=== PATIENT | male | born 1980 | race Caucasian/White ===

== ENCOUNTER 2023-10-17 20:37 | Emergency (ER) | payer OTHER, SELFPAY ==
[2023-10-17 20:43] VITALS: BP 160/90; PULSE 86; RESP 16; TEMP 37; O2SAT 98; BMI 27.6
--- NOTE | 2023-10-17 21:16 | CT_ITS ---
[address] [address] Patient Name: DANIELA MARTINEZ MRN: [id number] date: 1980 Sex: M Assigned Patient Location: ER Current Patient Location: Accession/Order Number: [id number] Exam Date: 10/17/2023 21:35 Report Date: 10/17/2023 22:17 At the request of: RYANN ROA Procedure: CT lumbar spine wo con EXAM: CT chest w con, CT abdomen pelvis w con, CT lumbar spine wo con TECHNIQUE: Axial CT images were obtained of the chest, abdomen and pelvis following intravenous contrast administration. Sagittal and coronal reformatted images were also obtained. Axial CT images were obtained through the lumbar spinal sagittal and coronal reformatted images. Dose reduction techniques were achieved by using automated exposure control and/or adjustment of mA and/or kV according to patient size and/or use of iterative reconstruction technique. HISTORY: trauma COMPARISON: None. FINDINGS: Neck and Axilla: No lower neck or axillary lymphadenopathy. Mediastinum and Stephania: No hilar or mediastinal lymphadenopathy. Heart and Major Vessels: The heart appears unremarkable for size without pericardial effusion. The aorta and central pulmonary arteries are unremarkable for size. Lung Ayoub: The lungs are clear of acute infiltrate or mass. Pleural Cavities: No significant pleural effusion. No pneumothorax. Chest Wall: No acute abnormality. Liver: Diffuse decreased attenuation of liver suggesting steatosis. Gallbladder: The gallbladder is unremarkable. There is no intra or extrahepatic biliary dilatation. Pancreas: The pancreas is homogeneous without evidence for mass lesion or inflammation. Spleen: The spleen is unremarkable without evidence for mass lesion. Adrenal glands: The adrenal glands are unremarkable Kidneys and bladder: The kidneys are unremarkable with no evidence for mass lesion, hydronephrosis or inflammation. The ureters demonstrate normal caliber. The urinary bladder is unremarkable. GI Tract: Stomach is unremarkable. Visualized small bowel is unremarkable without evidence for obstruction or active inflammation. The appendix is unremarkable.Diverticula are seen of the colon, more significant involving the distal colon. The visualized large bowel is otherwise unremarkable. Reproductive: Unremarkable Lymph nodes: No retroperitoneal or abdominal lymphadenopathy. Vascular: The aorta is not dilated. Peritoneum: No free intraperitoneal air or fluid. No acute inflammation. Abdominal wall: Unremarkable without acute abnormality. Lumbosacral spine: No acute fracture or subluxation. No significant arthritic changes. No acute disc herniation. CT/CT lumbar spine wo con IMPRESSION: No acute traumatic injury of the chest, abdomen or pelvis. No acute fracture or subluxation of the lumbar spine. Electronically authenticated by: RACHEL VIEIRA Date: 10/17/2023 22:17
--- NOTE | 2023-10-17 21:16 | CT_ITS ---
[address] [address] Patient Name: DANIELA MARTINEZ MRN: [id number] date: 1980 Sex: M Assigned Patient Location: ER Current Patient Location: Accession/Order Number: [id number] Exam Date: 10/17/2023 21:35 Report Date: 10/17/2023 22:22 At the request of: RYANN ROA Procedure: CT head/brain wo con EXAMINATION: CT head/brain wo con, CT cervical spine wo con TECHNIQUE: Axial CT images were obtained through the brain. Sagittal and coronal reformatted images were also obtained. Axial CT images were obtained through the cervical spine. Sagittal and coronal reformatted images were also obtained. Dose reduction techniques were achieved by using automated exposure control and/or adjustment of mA and/or kV according to patient size and/or use of iterative reconstruction technique. HISTORY: trauma COMPARISON: None. FINDINGS: BRAIN: Intracranial Bleed: No evidence for acute intracranial bleed. Intracranial Mass: No evidence for mass lesion. No mass effect or midline shift. Extra-axial spaces: The ventricular system is normal caliber. White/Martinez Matter: No acute cortical infarct. No significant white matter abnormality. Skull/Scalp: No evidence for skull fracture or lesion. Orbits and sinuses: The orbits appear unremarkable. Opacification of left frontal sinus. CERVICAL SPINE: Vertebrae: No fracture Alignment: The alignment is anatomic. No acute subluxation. Arthritic changes: Mild spondylosis at C5-C6. Disc spaces: No gross disc herniation given limitation of CT scan. Soft tissues: No soft tissue mass or large hematoma. CT/CT head/brain wo con IMPRESSION: No acute intracranial pathology. No acute fracture or subluxation of the cervical spine. Electronically authenticated by: RACHEL VIEIRA Date: 10/17/2023 22:22
--- NOTE | 2023-10-17 21:16 | CT_ITS ---
[address] [address] Patient Name: DANIELA MARTINEZ MRN: [id number] date: 1980 Sex: M Assigned Patient Location: ER Current Patient Location: Accession/Order Number: [id number] Exam Date: 10/17/2023 21:35 Report Date: 10/17/2023 22:17 At the request of: RYANN ROA Procedure: CT chest w con EXAM: CT chest w con, CT abdomen pelvis w con, CT lumbar spine wo con TECHNIQUE: Axial CT images were obtained of the chest, abdomen and pelvis following intravenous contrast administration. Sagittal and coronal reformatted images were also obtained. Axial CT images were obtained through the lumbar spinal sagittal and coronal reformatted images. Dose reduction techniques were achieved by using automated exposure control and/or adjustment of mA and/or kV according to patient size and/or use of iterative reconstruction technique. HISTORY: trauma COMPARISON: None. FINDINGS: Neck and Axilla: No lower neck or axillary lymphadenopathy. Mediastinum and Stephania: No hilar or mediastinal lymphadenopathy. Heart and Major Vessels: The heart appears unremarkable for size without pericardial effusion. The aorta and central pulmonary arteries are unremarkable for size. Lung Ayoub: The lungs are clear of acute infiltrate or mass. Pleural Cavities: No significant pleural effusion. No pneumothorax. Chest Wall: No acute abnormality. Liver: Diffuse decreased attenuation of liver suggesting steatosis. Gallbladder: The gallbladder is unremarkable. There is no intra or extrahepatic biliary dilatation. Pancreas: The pancreas is homogeneous without evidence for mass lesion or inflammation. Spleen: The spleen is unremarkable without evidence for mass lesion. Adrenal glands: The adrenal glands are unremarkable Kidneys and bladder: The kidneys are unremarkable with no evidence for mass lesion, hydronephrosis or inflammation. The ureters demonstrate normal caliber. The urinary bladder is unremarkable. GI Tract: Stomach is unremarkable. Visualized small bowel is unremarkable without evidence for obstruction or active inflammation. The appendix is unremarkable.Diverticula are seen of the colon, more significant involving the distal colon. The visualized large bowel is otherwise unremarkable. Reproductive: Unremarkable Lymph nodes: No retroperitoneal or abdominal lymphadenopathy. Vascular: The aorta is not dilated. Peritoneum: No free intraperitoneal air or fluid. No acute inflammation. Abdominal wall: Unremarkable without acute abnormality. Lumbosacral spine: No acute fracture or subluxation. No significant arthritic changes. No acute disc herniation. CT/CT chest w con IMPRESSION: No acute traumatic injury of the chest, abdomen or pelvis. No acute fracture or subluxation of the lumbar spine. Electronically authenticated by: RACHEL VIEIRA Date: 10/17/2023 22:17
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
--- NOTE | 2023-10-17 21:17 | CT_ITS ---
[address] [address] Patient Name: DANIELA MARTINEZ MRN: [id number] date: 1980 Sex: M Assigned Patient Location: ER Current Patient Location: Accession/Order Number: [id number] Exam Date: 10/17/2023 21:35 Report Date: 10/17/2023 22:17 At the request of: RYANN ROA Procedure: CT abdomen pelvis w con EXAM: CT chest w con, CT abdomen pelvis w con, CT lumbar spine wo con TECHNIQUE: Axial CT images were obtained of the chest, abdomen and pelvis following intravenous contrast administration. Sagittal and coronal reformatted images were also obtained. Axial CT images were obtained through the lumbar spinal sagittal and coronal reformatted images. Dose reduction techniques were achieved by using automated exposure control and/or adjustment of mA and/or kV according to patient size and/or use of iterative reconstruction technique. HISTORY: trauma COMPARISON: None. FINDINGS: Neck and Axilla: No lower neck or axillary lymphadenopathy. Mediastinum and Stephania: No hilar or mediastinal lymphadenopathy. Heart and Major Vessels: The heart appears unremarkable for size without pericardial effusion. The aorta and central pulmonary arteries are unremarkable for size. Lung Ayoub: The lungs are clear of acute infiltrate or mass. Pleural Cavities: No significant pleural effusion. No pneumothorax. Chest Wall: No acute abnormality. Liver: Diffuse decreased attenuation of liver suggesting steatosis. Gallbladder: The gallbladder is unremarkable. There is no intra or extrahepatic biliary dilatation. Pancreas: The pancreas is homogeneous without evidence for mass lesion or inflammation. Spleen: The spleen is unremarkable without evidence for mass lesion. Adrenal glands: The adrenal glands are unremarkable Kidneys and bladder: The kidneys are unremarkable with no evidence for mass lesion, hydronephrosis or inflammation. The ureters demonstrate normal caliber. The urinary bladder is unremarkable. GI Tract: Stomach is unremarkable. Visualized small bowel is unremarkable without evidence for obstruction or active inflammation. The appendix is unremarkable.Diverticula are seen of the colon, more significant involving the distal colon. The visualized large bowel is otherwise unremarkable. Reproductive: Unremarkable Lymph nodes: No retroperitoneal or abdominal lymphadenopathy. Vascular: The aorta is not dilated. Peritoneum: No free intraperitoneal air or fluid. No acute inflammation. Abdominal wall: Unremarkable without acute abnormality. Lumbosacral spine: No acute fracture or subluxation. No significant arthritic changes. No acute disc herniation. CT/CT abdomen pelvis w con IMPRESSION: No acute traumatic injury of the chest, abdomen or pelvis. No acute fracture or subluxation of the lumbar spine. Electronically authenticated by: RACHEL VIEIRA Date: 10/17/2023 22:17
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
[2023-10-17 21:41] LABS: Basophils Absolute Auto 0.1 10^3/uL (0.0-0.1); Basophils Percent Auto 0.6 % (0.2-2.0); Eosinophils Absolute Auto 0.2 10^3/uL (0.0-0.7); Eosinophils Percent Auto 2.4 % (0.9-7.0); Hemoglobin 11.7 g/dL (14.0-18.0); Immature Granulocytes Abs Auto 0.01 10^3/uL (0.00-0.03); Immature Granulocytes Pct Auto 0.1 % (0.0-0.5); Lymphocytes Absolute Auto 2.5 10^3/uL (1.2-3.8); Lymphocytes Percent Auto 28.6 % (20.5-60.0); Mean Corpuscular HGB Conc 30.8 g/dL (29.9-35.2); Mean Corpuscular Hemoglobin 20.7 pg (25.9-34.0); Mean Corpuscular Volume 67.3 fL (80.0-94.0); Mean Platelet Volume 10.2 fL (9.5-13.5); Monocytes Percent Auto 12.1 % (1.7-12.0); Neutrophils Absolute Auto 4.8 10^3/uL (1.4-6.5); Neutrophils Percent Auto 56.2 % (43.0-75.0); Platelet Count 334 10^3/uL (150-450); Red Blood Count 5.65 10^6/uL (4.70-6.10); Red Cell Distribution Width 15.9 % (11.0-15.0); White Blood Count 8.6 10^3/uL (4.0-11.0)
[2023-10-17 21:44] LABS: Bilirubin Urine NEGATIVE (NEGATIVE); Blood Urine NEGATIVE (NEGATIVE); Clarity Urine CLEAR (CLEAR); Color Urine YELLOW (YELLOW); Glucose Urine UA NEGATIVE (NEGATIVE); Ketones Urine NEGATIVE (NEGATIVE); Leukocyte Esterase Urine NEGATIVE (NEGATIVE); Nitrite Urine NEGATIVE (NEGATIVE); Protein Urine NEGATIVE (NEG/TRACE); Specific Gravity Urine >=1.030 (1.005-1.025); Urine Microscopic Indicated NO; Urobilinogen Urine 0.2 EU/dL (0.2-1.0); pH Urine 5.5 (5.0-9.0)
[2023-10-17 21:53] LABS: Alanine Aminotransferase 48 U/L (16-63); Albumin Globulin Ratio 1.2; Albumin Level 4.4 g/dL (3.4-5.0); Alkaline Phosphatase 76 U/L (46-116); Aspartate Amino Transferase 18 U/L (15-37); BUN Creatinine Ratio 23.5; Bilirubin Total 0.8 mg/dL (0.2-1.0); Calcium 9.2 mg/dL (8.5-10.1); Chloride 103 mmol/L (98-107); Estimated GFR (African America >60 (>=60); Estimated GFR (Non-African Ame >60 (>=60); Globulin 3.7 g/dL; Glucose 97 mg/dL (74-106); Sodium 141 mmol/L (136-145); Total Protein 8.1 g/dL (6.4-8.2)
[2023-10-17 21:55] LABS: Troponin I High Sensitivity 4.8 pg/mL (4.0-76.1)
== END 2023-10-17 22:39 | disposition home or self-care (01) ==
PROVIDERS: Emergency Provider Internal Medicine; Family Provider Family Medicine
DX: S39.012A Strain of muscle, fascia and tendon of lower back, initial encounter (principal); S20.212A Contusion of left front wall of thorax, initial encounter; S06.0X0A Concussion without loss of consciousness, initial encounter; V43.52XA Car driver injured in collision with other type car in traffic accident, initial encounter
CPT/HCPCS: 36415; 70450; 71260; 72125; 72131; 74177; 80053; 81003; 84484; 85025; 99285; Q9967

== ENCOUNTER 2024-03-14 07:36 | Outpatient (OUT) | payer OTHER, SELFPAY ==
--- OUTSIDE RECORDS SUMMARY | 2024-03-14 07:40 | XMS_ITS | CCD ---
Author Organization [facility] Care Team Providers Care [employer] Technician Name Role Phone SHAIKH LOYA Attending Unavailable Encounters Encounter Date Encounter Type Care Provider Facility Start: 03-09-2024 End: 03-09-2024 ambulatory SHAIKH VINCENZO Not Available Payers Date Payer Category Payer Unknown [id number] 1980 Unknown [id number] Summary Purpose Family History No Family History Records Found Advance Directives No Advanced Directives Records Found Additional Source Comments (unrecognized sect ion and content) No Status Records Found INFORMATION SOURCE (unrecogn ized section and content) DATE CREATED AUTHOR 03/11/2024 [facility] EPIC FOR RECORDS PERTAINING TO PATIENTS WHO ARE OR HAVE BEEN ENROLLED IN A CHEMICAL DEPENDENCY/SUBSTANCEABUSE PROGRAM, SOME INFORMATION MAY BE OMITTED. This clinical summary was aggregated from multiple sources. Caution should be exercised in using it in the provision of clinical care. This summary normalizes information from multiple sources, and as a consequence, information in this document may materially change the coding, format and clinical context of patient data. In addition, data may be omitted in some cases. CLINICAL DECISIONS SHOULD BE BASED ON THE PRIMARY CLINICAL RECORDS. [employer] provides no warranty or guarantee of the accuracy or completeness of information in this document.
[2024-03-14 08:00] LABS: Basophils Percent Auto 0.4 % (0.2-2.0); Eosinophils Absolute Auto 0.2 10^3/uL (0.0-0.7); Eosinophils Percent Auto 2.8 % (0.9-7.0); Hematocrit 36.2 % (42.0-54.0); Hemoglobin 11.2 g/dL (14.0-18.0); Immature Granulocytes Abs Auto 0.01 10^3/uL (0.00-0.03); Immature Granulocytes Pct Auto 0.1 % (0.0-0.5); Lymphocytes Absolute Auto 1.5 10^3/uL (1.2-3.8); Lymphocytes Percent Auto 22.1 % (20.5-60.0); Mean Corpuscular HGB Conc 30.9 g/dL (29.9-35.2); Mean Corpuscular Hemoglobin 20.6 pg (25.9-34.0); Mean Corpuscular Volume 66.5 fL (80.0-94.0); Mean Platelet Volume 10.2 fL (9.5-13.5); Monocytes Absolute Auto 0.8 10^3/uL (0.3-0.8); Monocytes Percent Auto 11.5 % (1.7-12.0); Neutrophils Absolute Auto 4.2 10^3/uL (1.4-6.5); Neutrophils Percent Auto 63.1 % (43.0-75.0); Platelet Count 328 10^3/uL (150-450); Red Blood Count 5.44 10^6/uL (4.70-6.10); Red Cell Distribution Width 15.9 % (11.0-15.0); White Blood Count 6.7 10^3/uL (4.0-11.0)
[2024-03-14 09:43] LABS: Alanine Aminotransferase 28 U/L (16-63); Albumin Globulin Ratio 1.2; Alkaline Phosphatase 82 U/L (46-116); Anion Gap 12.4; Aspartate Amino Transferase <5 U/L (15-37); BUN Creatinine Ratio 20.5; Bilirubin Total 0.6 mg/dL (0.2-1.0); Calcium 8.9 mg/dL (8.5-10.1); Carbon Dioxide 28.6 mmol/L (21.0-32.0); Chloride 103 mmol/L (98-107); Estimated GFR (African America >60 (>=60); Estimated GFR (Non-African Ame >60 (>=60); Globulin 3.3 g/dL; Glucose 94 mg/dL (74-106); Sodium 140 mmol/L (136-145); TSH W/ REFLEX FT4 1.745 uIU/mL (0.358-3.740); Total Protein 7.3 g/dL (6.4-8.2)
== END 2024-03-14 07:37 | disposition home or self-care (01) ==
LOC: LAB 07:38
PROVIDERS: Family Provider Family Medicine; PCP Internal Medicine; Visit Provider Internal Medicine
DX: F41.1 Generalized anxiety disorder (principal); I10 Essential (primary) hypertension; F41.0 Panic disorder [episodic paroxysmal anxiety]
CPT/HCPCS: 36415; 80053; 84443; 85025

== ENCOUNTER 2025-01-11 09:01 | Outpatient (OUT) | payer OTHER, SELFPAY ==
--- OUTSIDE RECORDS SUMMARY | 2025-01-11 09:20 | XMS_ITS | CCD ---
Author Organization [facility] Care Team Providers Care New Vehicle Sales Consultant Name Role Phone Darius Blue MD Primary Care Provider Rl SUBWAY CONDUCTOR, Marian Unavailable Shaikh Loya MD Unavailable SHAIKH LOYA Attending Unavailable SHAIKH LOYA Attending Unavailable SHAIKH LOYA Attending Unavailable MARIAN CARDOSO Attending MARIAN Vargas Attending Mely Cardoso SUBWAY CONDUCTOR, Marian Unavailable Medications Current Medications Medication Drug Class(es) Dates Sig (Normalized) Sig (Original) atenolol 50 mg oral tablet (6 sources) beta-Adrenergic Jai Start: 05-11-2024 End: 11-30-2024 take 1 tablet by mouth once daily atenolol (Tenormin) 50 MG tablet Indications: Primary hypertension (CMS/HCC) , Generalized anxiety disorder with panic attacks (CMS/HCC) Take 1 tablet (50 mg) by mouth Daily 90 tablet 05/11/2024 11/30/2024 Discontinued (Side effects) 24 hr buPROPion hydrochloride 150 mg extended release oral tablet (4 sources) Aminoketone Start: 11-30-2024 End: 05-29-2025 take 1 tablet by mouth every twenty-four hours in the morning buPROPion XL (Wellbutrin XL) 150 MG 24 hr tablet Indications: Generalized anxiety disorder with panic attacks (CMS/HCC) Take 1 tablet (150 mg) by mouth in the morning. Do not crush, chew, or split.. 30 tablet 5 11/30/2024 01/11/2025 Discontinued hydrOXYzine hydrochloride 25 mg oral tablet (3 sources) Antihistamine Start: 03-09-2024 End: 07-13-2024 take 1 tablet by mouth three times daily as needed hydrOXYzine HCl (Atarax) 25 MG tablet Indications: Generalized anxiety disorder with panic attacks (CMS/HCC) Take 1 tablet (25 mg) by mouth 3 (three) times a day as needed for itching 90 tablet 1 03/09/2024 07/13/2024 Discontinued (Therapy completed) LORazepam 0.5 mg oral tablet (5 sources) Benzodiazepine Start: 07-13-2024 End: 11-30-2024 take 0.5-1 tablets by mouth every twelve hours as needed for anxiety LORazepam (Ativan) 0.5 MG tablet Indications: Generalized anxiety disorder with panic attacks (CMS/HCC) Take 1/2 to 1 tablet by mouth every 12 hours as needed for anxiety. 20 tablet 07/13/2024 11/30/2024 Discontinued (Therapy completed) sertraline 50 mg oral tablet (12 sources) Serotonin Reuptake Inhibitor Start: 07-13-2024 End: 01-11-2025 take 1 tablet by mouth once daily, then take 1 tablet by mouth once daily, then take 0.5 tablet by mouth every other day sertraline (Zoloft) 50 MG tablet Indications: Generalized anxiety disorder with panic attacks (CMS/HCC) Take 1 tablet (50 mg) by mouth Daily for 7 days, THEN 1 tablet (50 mg) Daily for 7 days, THEN 0.5 tablets (25 mg) every other day for 7 days. 16 tablet 07/13/2024 01/11/2025 Discontinued Start: 05-11-2024 End: 08-09-2024 take 1 tablet by mouth once daily sertraline (Zoloft) 100 MG tablet Indications: Generalized anxiety disorder with panic attacks (CMS/HCC) Take 1 tablet (100 mg) by mouth Daily 90 tablet 05/11/2024 07/13/2024 Discontinued (Side effects) Problems Active Problems Problem Classification Problem Date Documented Da te Episodic/Chronic Anxiety disorders (20 sources) Generalized anxiety disorder; Translations: [Generalized anxiety disorder] Onset: 03-09-2024 Resolved: 03-09-2024 07-12-2024 Chronic Essential hypertension (16 sources) Essential hypertension; Translations: [Essential (primary) hypertension] Onset: 03-09-2024 07-12-2024 Chronic Mood disorders (4 sources) Recurrent major depressive episodes, mild ; Translations: [Major depressive disorder, recurrent, mild] Onset: 01-11-2025 01-11-2025 Chronic Past or Other Problems Problem Classification Problem Date Documented Da te Episodic/Chronic Administrative/social admission (10 sources) Patient encounter status; Translations: [Persons encountering health services in other specified circumstances] Onset: 03-09-2024 Resolved: 01-11-2025 03-09-2024 Episodic Mood disorders (10 sources) Mood disorders Onset: 03-09-2024 03-09-2024 Vital Signs Date Time Vital Sign Value Performing Clinician Faci lity 01-11-2025 08:11-0500 Body height 185.4 cm Darius Blue MD Work Phone: [facility] 01-11-2025 08:11-0500 Body mass index (BMI) [Ratio] 29.55 kg/m2 Darius Blue MD Work Phone: [facility] 01-11-2025 08:11-0500 Body temperature 97.81 [degF] Darius Blue MD Work Phone: [facility] 01-11-2025 08:11-0500 Body weight 101.61 kg Darius Blue MD Work Phone: [facility] 01-11-2025 08:11-0500 Diastolic blood pressure 72 mm[Hg] Darius Blue MD Work Phone: [facility] 01-11-2025 08:11-0500 Heart rate 71 /min Darius Blue MD Work Phone: [facility] 01-11-2025 08:11-0500 Respiratory rate 20 /min Darius Blue MD Work Phone: [facility] 01-11-2025 08:11-0500 SaO2% (BldA) [Mass fraction] 96 % Darius Bleu MD Work Phone: [facility] 01-11-2025 08:11-0500 Systolic blood pressure 130 mm[Hg] Darius Blue MD Work Phone: [facility] 11-30-2024 07:30-0500 Body height 185.4 cm Marian Cardoso SUBWAY CONDUCTOR Work Phone: [facility] 11-30-2024 07:30-0500 Body mass index (BMI) [Ratio] 30.79 kg/m2 Marian Cardoso SUBWAY CONDUCTOR Work Phone: [facility] 11-30-2024 07:30-0500 Body temperature 96.4 [degF] Marian Cardoso SUBWAY CONDUCTOR Work Phone: [facility] 11-30-2024 07:30-0500 Body weight 105.87 kg Marian Cardoso SUBWAY CONDUCTOR Work Phone: [facility] 11-30-2024 07:30-0500 Diastolic blood pressure 82 mm[Hg] Marian Cardoso SUBWAY CONDUCTOR Work Phone: [facility] 11-30-2024 07:30-0500 Heart rate 64 /min Marian Cardoso SUBWAY CONDUCTOR Work Phone: [facility] 11-30-2024 07:30-0500 Respiratory rate 16 /min Marian Cardoso SUBWAY CONDUCTOR Work Phone: [facility] 11-30-2024 07:30-0500 SaO2% (BldA) [Mass fraction] 98 % Marian Cardoso SUBWAY CONDUCTOR Work Phone: [facility] 11-30-2024 07:30-0500 Systolic blood pressure 140 mm[Hg] Marian Cardoso SUBWAY CONDUCTOR Work Phone: [facility] 07-13-2024 09:02-0400 Body height 185.4 cm Marian Cardoso SUBWAY CONDUCTOR Work Phone: [facility] 07-13-2024 09:02-0400 Body mass index (BMI) [Ratio] 28.5 kg/m2 Marian Cardoso SUBWAY CONDUCTOR Work Phone: [facility] 07-13-2024 09:02-0400 Body temperature 97.81 [degF] Marian Cardoso SUBWAY CONDUCTOR Work Phone: [facility] 07-13-2024 09:02-0400 Body weight 97.98 kg Marian Wangk SUBWAY CONDUCTOR Work Phone: [facility] 07-13-2024 09:02-0400 Diastolic blood pressure 90 mm[Hg] Marian Griffinpatrick SUBWAY CONDUCTOR Work Phone: [facility] 07-13-2024 09:02-0400 Heart rate 75 /min Marian Yuntrick SUBWAY CONDUCTOR Work Phone: [facility] Comment on above: 96% O2 07-13-2024 09:02-0400 Systolic blood pressure 140 mm[Hg] Marian Griffinpatrick SUBWAY CONDUCTOR Work Phone: [facility] Encounters Encounter Date Encounter Type Care Provider Facility Start: 01-11-2025 End: 01-11-2025 Bam[employer]Roomsheet Darius Blue MD Work Phone: [facility] Start: 01-11-2025 End: 01-11-2025 [employer] Darius Blue MD Work Phone: [facility] Start: 01-11-2025 End: 01-11-2025 Patient encounter procedure Darius Blue MD Work Phone: [facility] Work Phone: Start: 01-11-2025 End: 01-11-2025 Periodic preventive med est patient 40-64yrs Darius Blue MD Work Phone: [facility] Comment on above: Annual physical exam (Primary Dx); Primary hypertension (CMS/HCC); MDD (major depressive disorder), recurrent episode, mild (HCC) (CMS/HCC); Generalized anxiety disorder with panic attacks (CMS/HCC) Start: 11-30-2024 End: 11-30-2024 Bamboo [employer] Marian Yuntrick SUBWAY CONDUCTOR Work Phone: [facility] Start: 11-30-2024 End: 11-30-2024 Bamboo flowsheet Marian Cardoso SUBWAY CONDUCTOR Work Phone: [facility] Start: 11-30-2024 End: 11-30-2024 Office outpatient visit 15 minutes Marian Cardsoo SUBWAY CONDUCTOR Work Phone: [facility] Comment on above: Generalized anxiety disorder with panic attacks (CMS/HCC) (Primary Dx); Primary hypertension (CMS/HCC) Start: 11-30-2024 End: 11-30-2024 Orders Only Marian Cardoso SUBWAY CONDUCTOR Work Phone: [facility] Comment on above: Generalized anxiety disorder with panic attacks (CMS/HCC) (Primary Dx) Start: 07-13-2024 End: 07-13-2024 Bamboo flowsheet Marian Cardoso SUBWAY CONDUCTOR Work Phone: [facility] Start: 07-13-2024 End: 07-13-2024 Bamboo flowsheet Marian Cardoso SUBWAY CONDUCTOR Work Phone: [facility] Start: 07-13-2024 End: 07-13-2024 Office outpatient visit 15 minutes Marian Cardoso SUBWAY CONDUCTOR Work Phone: [facility] Comment on above: Primary hypertension (CMS/HCC) (Primary Dx); Generalized anxiety disorder with panic attacks (CMS/HCC) Start: 07-13-2024 End: 07-13-2024 ambulatory MARIAN CARDOSO Not Available Start: 05-11-2024 End: 05-11-2024 ambulatory OLIVA FAWWAD Not Available Start: 04-13-2024 End: 04-13-2024 ambulatory OLIVA FAWWAD Not Available Start: 03-09-2024 End: 03-09-2024 ambulatory OLIVA FAWWAD Not Available Plan of Treatment Date Care Activity Detail Author Start: 01-11-2026 Screening for malign ant neoplasm of colon Colorectal Cancer Screening [facility] Comment on above: Postponed from 01/03 (Patient Refused) Start: 03-01-2025 End: 03-01-2025 Patient encounter procedure 03/01/2025 8:00 AM EDT Office Visit [facility] [address] [place] [address] Marian Cardoso NP [address] [place] [phone] [facility] Start: 02-07-2025 End: 02-07-2025 Patient encounter procedure 02/07/2025 2:45 PM EDT Office Visit [facility] [address] [place] [phone] Darius Blue MD [address] [place] [address] [facility] Start: 01-11-2025 End: 01-11-2026 Basic metabolic 1998 panel - Serum or Plasma Basic metabolic panel Lab Routine Annual physical exam Expected: 01/11/2025 (Approximate), Expires: 01/11/2026 [facility] Comment on above: Expected: 01/11/2025 (Approximate), Expires: 01/11/2026 Start: 01-11-2025 End: 01-11-2026 CBC W Auto Differential panel - Blood CBC and differential Lab Routine Annual physical exam Expected: 01/11/2025 (Approximate), Expires: 01/11/2026 [facility] Comment on above: Expected: 01/11/2025 (Approximate), Expires: 01/11/2026 Start: 01-11-2025 End: 01-11-2026 Hemoglobin A1c/Hemoglobin.total in Blood Hemoglobin A1c Lab Routine Annual physical exam Expected: 01/11/2025 (Approximate), Expires: 01/11/2026 [facility] Comment on above: Expected: 01/11/2025 (Approximate), Expires: 01/11/2026 Start: 01-11-2025 End: 01-11-2026 Hepatic function 2000 panel - Serum or Plasma Hepatic function panel Lab Routine Annual physical exam Expected: 01/11/2025 (Approximate), Expires: 01/11/2026 [facility] Comment on above: Expected: 01/11/2025 (Approximate), Expires: 01/11/2026 Start: 01-11-2025 End: 01-11-2026 Lipid 1996 panel - Serum or Plasma Lipid panel Lab Routine Annual physical exam Expected: 01/11/2025 (Approximate), Expires: 01/11/2026 [facility] Comment on above: Expected: 01/11/2025 (Approximate), Expires: 01/11/2026 Start: 01-11-2025 End: 01-11-2026 Prostate specific Ag [Mass/volume] in Serum or Plasma PSA Lab Routine Annual physical exam Expected: 01/11/2025 (Approximate), Expires: 01/11/2026 [facility] Comment on above: Expected: 01/11/2025 (Approximate), Expires: 01/11/2026 Start: 01-11-2025 End: 01-11-2026 Testosterone [Mass/volume] in Serum or Plasma Testosterone Lab Routine Annual physical exam Expected: 01/11/2025 (Approximate), Expires: 01/11/2026 [facility] Work Phone: Comment on above: Expected: 01/11/2025 (Approximate), Expires: 01/11/2026 Start: 01-11-2025 End: 01-11-2026 Thyrotropin [Units/volume] in Serum or Plasma TSH Lab Routine Annual physical exam Expected: 01/11/2025 (Approximate), Expires: 01/11/2026 [facility] Comment on above: Expected: 01/11/2025 (Approximate), Expires: 01/11/2026 Start: 01-11-2025 End: 01-11-2025 Patient encounter procedure 01/11/2025 8:30 AM EST [facility] [address] [place] [address] Marian Cardoso NP [address] [place] [address] [facility] Start: 11-30-2024 End: 11-30-2024 Patient encounter procedure 11/30/2024 7:30 AM EST Office Visit [facility] [address] [place] [address] Marian Cardoso, JONES [address] [place] [address] Arrived [facility] Comment on above: Arrived Start: 08-11-2024 End: 08-11-2024 Patient encounter procedure 08/11/2024 8:30 AM EDT Office Visit [facility] [address] [place] [phone] Marian Cardoso, JONES [address] [place] [phone] [facility] Start: 07-17-2024 Influenza vaccination Influenza Vacc ine (#1) [facility] Start: 07-13-2024 End: 07-13-2024 Patient encounter procedure 07/13/2024 9:00 AM EDT Office Visit [facility] [address] [place] [phone] Marian Cardoso, JONES [address] [place] [phone] Primary hypertension (CMS/HCC) (Primary Dx); Generalized anxiety disorder with panic attacks (CMS/HCC) [facility] Comment on above: Primary hypertension (CMS/HCC) (Primary Dx); Generalized anxiety disorder with panic attacks (CMS/HCC) Start: 1980 Screening for malign ant neoplasm of colon [facility] Payers Date Payer Category Payer Private Health Insurance [employer] [id number] 2023 Unknown [employer] [id number] 2023-Present [address] [place] [address] [id number] 2023 Unknown [id number] 1980 Unknown [id number] 1980 Unknown [id number] 1980 Unknown [id number] 1980 Unknown [id number] 1980 Unknown [id number] Social History Date Type Detail Facility Start: 03-09-2024 Tobacco smoking status SDIS Never smoked tobacco [facility] Start: 03-09-2024 Tobacco use and exposure Smokeless tobacco non-user [facility] Start: 07-13-2024 End: 01-11-2025 Alcoholic beverage intake Current drinker of alcohol (finding) [facility] Start: 07-13-2024 End: 01-11-2025 History of Social function [facility] Start: 07-13-2024 End: 01-11-2025 Tobacco use panel [facility] Start: 03-09-2024 Alcohol Comment occassionally [facility] Start: 1980 Sex assigned at Not on file [facility] NEGATED: Highlighted rowStart: NINF History of tobacco use Passive smoker [facility] History of Present illness Narrative 01-11-2025 Darius Blue MD - 01/11/2025 8:40 AM Trudy Blue MD - 01/11/2025 8:40 AM Trudy Blue MD - 01/11/2025 8:40 AM Trudy Blue MD - 01/11/2025 8:39 AM EST Note Date & Type Note Facility 01-11-2025 History of Presen t illness Narrative Associated Problem(s): HTN (hypertension) (CMS/HCC) BP controlled and monitor PRN. Associated Problem(s): MDD (major depressive disorder), recurrent episode, mild (HCC) (CMS/HCC) Stop wellbutrin. Start celexa and warned will take 2-3 weeks to notice improvement in mood. Associated Problem(s): Generalized anxiety disorder with panic attacks (CMS/HCC) Stop wellbutrin. Start celexa and warned will take 2-3 weeks to notice improvement in mood. Associated Problem(s): Annual physical exam Due for labs. Discussed proper diet and regular aerobic exercise. Need aerobic exercise 5-6 days a week for 30 minutes at a time. Smaller portions and limit total calories. Declined colon cancer screening. Tetanus every 10 years. Advised not to smoke. Images from the original note were not included. Subjective Patient ID: Armen Hector is a 45 y.o. male who presents for Follow-up (3 m). Presents for annual PE. Weight down 9 pounds since last visit. Tries to watch diet and eat healthy. Increased fruits and vegetables. Smaller portions and limits snacking. Tries to limit total daily calories. Trying to increase activity. Due for labs. Mood worse. Changed to zoloft due to side effects and not doing well on wellbutrin. Developed depression and down, sad, and no motivation. Not want to do anything or be around others. Anxiety unchanged. Nervous and worry all the time. Stressed out and overwhelmed. Thought racing and hard to clear mind. [place], irritable and snapping at others. Easily upset and overreact. Review of Systems Constitutional: Negative for fatigue. Respiratory: Negative for cough, shortness of breath and wheezing. Cardiovascular: Negative for chest pain and palpitations. Gastrointestinal: Negative for abdominal pain, diarrhea, nausea and vomiting. Genitourinary: Negative for dysuria. Objective Physical Exam Constitutional: General: He is not in acute distress. Appearance: Normal appearance. HENT: Head: Normocephalic. Right Ear: Tympanic membrane and ear canal normal. Left Ear: Tympanic membrane and ear canal normal. Eyes: Extraocular Movements: Extraocular movements intact. Pupils: Pupils are equal, round, and reactive to light. Cardiovascular: Rate and Rhythm: Normal rate and regular rhythm. Heart sounds: No murmur heard. No friction rub. No gallop. Pulmonary: Breath sounds: Normal breath sounds. No wheezing, rhonchi or rales. Abdominal: General: Bowel sounds are normal. There is no distension. Palpations: Abdomen is soft. Tenderness: There is no abdominal tenderness. There is no guarding or rebound. Musculoskeletal: General: Normal range of motion. Left lower leg: No edema. Neurological: General: No focal deficit present. Mental Status: He is alert. Cranial Nerves: No cranial nerve deficit. Deep Tendon Reflexes: Reflexes normal. Assessment/Plan Problem List Items Addressed This Visit HTN (hypertension) (CMS/HCC) BP controlled and monitor PRN. Generalized anxiety disorder with panic attacks (CMS/HCC) Stop wellbutrin. Start celexa and warned will take 2-3 weeks to notice improvement in mood. Annual physical exam - Primary Due for labs. Discussed proper diet and regular aerobic exercise. Need aerobic exercise 5-6 days a week for 30 minutes at a time. Smaller portions and limit total calories. Declined colon cancer screening. Tetanus every 10 years. Advised not to smoke. Relevant Orders Testosterone Hemoglobin A1c Basic metabolic panel CBC and differential Hepatic function panel Lipid panel PSA TSH MDD (major depressive disorder), recurrent episode, mild (HCC) (CMS/HCC) Stop wellbutrin. Start celexa and warned will take 2-3 weeks to notice improvement in mood. documented in this encounter [facility] History of Present illness Narrative 11-30-2024 Marian Cardoso NP - 11/30/2024 3:55 PM EST Note Date & Type Note Facility 11-30-2024 History of Presen t illness Narrative Take medication only as directed. This medication will take approximately 4-6 weeks to become effective. If any suicidal thoughts, thoughts of hurting others, or hallucinations contact the office or proceed to the Emergency Room for mental health evaluation. Medication may cause dry mouth, dizziness, and in some cases worsening in depression symptoms. Please contact the office if these occur. documented in this encounter [facility] History of Present illness Narrative 11-30-2024 Marian Cardoso NP - 11/30/2024 9:12 AM Wilfred Cardoso NP - 11/30/2024 9:11 AM Wilfred Cardoso NP - 11/30/2024 7:30 AM EST Note Date & Type Note Facility 11-30-2024 History of Presen t illness Narrative Associated Problem(s): HTN (hypertension) (CMS/HCC) Stopped taking Atenolol 50mg Checks BP at home infrequently; [place] off BP is slightly elevated in office today. Declines restarting BP medication or any medication for BP. Advised pt to monitor BP and bring log back with him to next OV. Associated Problem(s): Generalized anxiety disorder with panic attacks (CMS/HCC) Currently taking Hydroxyzine 25mg Sertraline 100mg Complains of anorgasmia with sertraline. Tried tapering off zoloft but had dizziness and anxiety. States he is now taking 1/2 zoloft every other day. Discussed with patient potentially adding Wellbutrin to varnish maker helper with the anorgasmia effect of the Sertraline, pt states he would like to do some research before deciding. Images from the original note were not included. Subjective Patient ID: Armen Hector is a 44 y.o. male who presents for Follow-up and Med Refill. HPI HTN: Stopped taking Atenolol 50mg Checks BP at home infrequently; [place] off BP is slightly elevated in office today. Declines restarting BP medication or any medication for BP. Advised pt to monitor BP and bring log back with him to next OV. JAN: Currently taking Hydroxyzine 25mg Sertraline 100mg Complains of anorgasmia with sertraline. Tried tapering off zoloft but had dizziness and anxiety. States he is now taking 1/2 zoloft every other day. Discussed with patient potentially adding Wellbutrin to varnish maker helper with the anorgasmia effect of the Sertraline, pt states he would like to do some research before deciding. Review of Systems Constitutional: Negative for activity change, appetite change, chills, diaphoresis, fatigue, fever and unexpected weight change. HENT: Negative for congestion, ear pain, rhinorrhea, sinus pressure, sinus pain, sneezing, sore throat, trouble swallowing and voice change. Eyes: Negative for visual disturbance. Respiratory: Negative for cough, chest tightness, shortness of breath and wheezing. Cardiovascular: Negative for chest pain, palpitations and leg swelling. Gastrointestinal: Negative for abdominal distention, abdominal pain, blood in stool, constipation, diarrhea and vomiting. Genitourinary: Negative for decreased urine volume, dysuria, flank pain, frequency, hematuria and urgency. Musculoskeletal: Negative for arthralgias, gait problem, joint swelling and myalgias. Skin: Negative for rash. Neurological: Negative for dizziness, tremors, syncope, weakness, light-headedness and headaches. Psychiatric/Behavioral: Negative for decreased concentration and suicidal ideas. The patient is nervous/anxious. Hematological: Does not bruise/bleed easily. Endocrine: Negative for cold intolerance, heat intolerance, polydipsia, polyphagia and polyuria. Objective Physical Exam Vitals reviewed. Constitutional: Appearance: Normal appearance. HENT: Right Ear: Tympanic membrane normal. Left Ear: Tympanic membrane normal. Nose: Nose normal. Mouth/Throat: Mouth: Mucous membranes are moist. Pharynx: Oropharynx is clear. Eyes: Pupils: Pupils are equal, round, and reactive to light. Cardiovascular: Rate and Rhythm: Normal rate and regular rhythm. Pulses: Normal pulses. Heart sounds: Normal heart sounds. Pulmonary: Effort: Pulmonary effort is normal. Breath sounds: Normal breath sounds. Abdominal: General: Abdomen is flat. Bowel sounds are normal. Palpations: Abdomen is soft. Musculoskeletal: General: Normal range of motion. Skin: General: Skin is warm and dry. Capillary Refill: Capillary refill takes less than 2 seconds. Neurological: Mental Status: He is alert and oriented to person, place, and time. Assessment/Plan Problem List Items Addressed This Visit HTN (hypertension) (CMS/HCC) Stopped taking Atenolol 50mg Checks BP at home infrequently; [place] off BP is slightly elevated in office today. Declines restarting BP medication or any medication for BP. Advised pt to monitor BP and bring log back with him to next OV. Generalized anxiety disorder with panic attacks (CMS/HCC) - Primary Currently taking Hydroxyzine 25mg Sertraline 100mg Complains of anorgasmia with sertraline. Tried tapering off zoloft but had dizziness and anxiety. States he is now taking 1/2 zoloft every other day. Discussed with patient potentially adding Wellbutrin to varnish maker helper with the anorgasmia effect of the Sertraline, pt states he would like to do some research before deciding. documented in this encounter [facility] History of Present illness Narrative 07-13-2024 Marian Cardoso NP - 07/13/2024 9:00 AM Den Cardoso NP - 07/12/2024 9:15 PM Den Cardoso NP - 07/12/2024 9:15 PM EDT Note Date & Type Note Facility 07-13-2024 History of Presen t illness Narrative Images from the original note were not included. Subjective Patient ID: Armen Hector is a 44 y.o. male who presents for Follow-up (2MO F/U) and Anxiety (PT FEELS MEDS MAY NEED ADJUSTED A LITTLE BIT). HPI HTN: Atenolol 50mg Checks BP at home infrequently; [place] off Checked BP and readings were in the 1teens. Started taking 1/2 dose of Tenormin. BP is slightly elevated in office today. JAN: Hydroxyzine 25mg Sertraline 100mg Complains of anorgasmia with sertraline. Would like to be tapered off sertraline and started on a different regimen. Review of Systems Constitutional: Negative for activity change, appetite change, chills, diaphoresis, fatigue, fever and unexpected weight change. HENT: Negative for congestion, ear pain, rhinorrhea, sinus pressure, sinus pain, sneezing, sore throat, trouble swallowing and voice change. Eyes: Negative for visual disturbance. Respiratory: Negative for cough, chest tightness, shortness of breath and wheezing. Cardiovascular: Negative for chest pain, palpitations and leg swelling. Gastrointestinal: Negative for abdominal distention, abdominal pain, blood in stool, constipation, diarrhea and vomiting. Genitourinary: Negative for decreased urine volume, dysuria, flank pain, frequency, hematuria and urgency. Musculoskeletal: Negative for arthralgias, gait problem, joint swelling and myalgias. Skin: Negative for rash. Neurological: Negative for dizziness, tremors, syncope, weakness, light-headedness and headaches. Psychiatric/Behavioral: Negative for decreased concentration and suicidal ideas. The patient is not nervous/anxious. Hematological: Does not bruise/bleed easily. Endocrine: Negative for cold intolerance, heat intolerance, polydipsia, polyphagia and polyuria. Objective Physical Exam Vitals reviewed. Constitutional: Appearance: Normal appearance. HENT: Head: Normocephalic and atraumatic. Right Ear: Tympanic membrane normal. Left Ear: Tympanic membrane normal. Nose: Nose normal. Mouth/Throat: Mouth: Mucous membranes are moist. Pharynx: Oropharynx is clear. Eyes: Pupils: Pupils are equal, round, and reactive to light. Cardiovascular: Rate and Rhythm: Normal rate and regular rhythm. Pulses: Normal pulses. Heart sounds: Normal heart sounds. Pulmonary: Effort: Pulmonary effort is normal. Breath sounds: Normal breath sounds. Abdominal: General: Abdomen is flat. Bowel sounds are normal. Palpations: Abdomen is soft. Musculoskeletal: General: Normal range of motion. Cervical back: Normal range of motion. Skin: General: Skin is warm and dry. Capillary Refill: Capillary refill takes less than 2 seconds. Neurological: General: No focal deficit present. Mental Status: He is alert and oriented to person, place, and time. Psychiatric: Mood and Affect: Mood normal. Behavior: Behavior normal. Assessment/Plan Problem List Items Addressed This Visit HTN (hypertension) (CMS/HCC) - Primary Atenolol 50mg Denies Shortness of breath, cough, chest pain, edema in extremities, orthostatic changes. Continue current regimen. Generalized anxiety disorder with panic attacks (CMS/HCC) Sertraline 100mg Hydroxyzine 25mg Complains of anorgasmia with sertraline. Would like to be tapered off sertraline and started on a different regimen. Taper dosing instructions given. Discussed alternative pharmacological options. Will initiate different medication at next visit. Relevant Medications LORazepam (Ativan) 0.5 MG tablet sertraline (Zoloft) 50 MG tablet Associated Problem(s): Generalized anxiety disorder with panic attacks (CMS/HCC) Sertraline 100mg Hydroxyzine 25mg Complains of anorgasmia with sertraline. Would like to be tapered off sertraline and started on a different regimen. Taper dosing instructions given. Discussed alternative pharmacological options. Will initiate different medication at next visit. Associated Problem(s): HTN (hypertension) (CMS/HCC) Atenolol 50mg Denies Shortness of breath, cough, chest pain, edema in extremities, orthostatic changes. Continue current regimen. documented in this encounter [facility] Instructions 07-13-2024 Patient Instructions Note Date & Type Note Facility 07-13-2024 Instructions Marian Cardoso NP - 07/13/2024 9:00 AM EDT Your blood pressure is Slightly Elevated in the office today. Check your blood pressure at home 3 times per week, preferably in the afternoon. Goal <130/90. Record results in blood pressure log. Bring back with you to your next visit. Start to taper Zoloft; Start taking 50mg for one week Then take 25mg for one week Then take 25mg libby other day for the final week. Then stop taking medication all together. Take 1/2- 1 tablet of Ativan as needed for anxiety Diet: Eat three meals per day. Breakfast, lunch, and dinner. Avoid snacking. Avoid eating after 5/6 pm. Daily protein GOAL 35% of your intake; 30g per meal. Daily calorie GOAL 1,800-2,000 per day. Consider tracking your food intake on [employer] or [employer] Water: Increase water intake; GOAL 64-80oz of water per day. Exercise: Increase activity. GOAL 30 minutes, 5 days per week. START SLOW. Start with 5 minutes, 5 days per week. Then increase to 10 days, 5 days per week. Continue to increase until you reach the goal. Increase steps; GOAL 10,000 steps per day. Be sure to get adequate sleep; GOAL 6-8 hours of sleep per night. documented in this encounter [facility] Evaluation note Note Date & Type Note Facility Evaluation note Diagnosis Primary hypertension (CMS/HCC)- Primary Unspecified essential hypertension Generalized anxiety disorder with panic attacks (CMS/HCC) documented in this encounter [facility] Healthcare Evaluation note Note Date & Type Note Facility Evaluation note Diagnosis Primary hypertension (CMS/HCC)- Primary Unspecified essential hypertension Generalized anxiety disorder with panic attacks (CMS/HCC) Establishing care with new doctor, encounter for Primary hypertension (CMS/HCC)- Primary Unspecified essential hypertension Generalized anxiety disorder with panic attacks (CMS/HCC) Primary hypertension (CMS/HCC)- Primary Unspecified essential hypertension Generalized anxiety disorder with panic attacks (CMS/HCC) Primary hypertension (CMS/HCC)- Primary Unspecified essential hypertension Generalized anxiety disorder with panic attacks (CMS/HCC) Generalized anxiety disorder with panic attacks (CMS/HCC)- Primary Primary hypertension (CMS/HCC) Unspecified essential hypertension documented in this encounter [facility] Evaluation note Note Date & Type Note Facility Evaluation note Diagnosis Primary hypertension (CMS/HCC)- Primary Unspecified essential hypertension Generalized anxiety disorder with panic attacks (CMS/HCC) Establishing care with new doctor, encounter for Primary hypertension (CMS/HCC)- Primary Unspecified essential hypertension Generalized anxiety disorder with panic attacks (CMS/HCC) Primary hypertension (CMS/HCC)- Primary Unspecified essential hypertension Generalized anxiety disorder with panic attacks (CMS/HCC) Primary hypertension (CMS/HCC)- Primary Unspecified essential hypertension Generalized anxiety disorder with panic attacks (CMS/HCC) Generalized anxiety disorder with panic attacks (CMS/HCC)- Primary Primary hypertension (CMS/HCC) Unspecified essential hypertension Generalized anxiety disorder with panic attacks (CMS/HCC)- Primary documented in this encounter [facility] Evaluation note Note Date & Type Note Facility Evaluation note Diagnosis Primary hypertension (CMS/HCC)- Primary Unspecified essential hypertension Generalized anxiety disorder with panic attacks (CMS/HCC) Establishing care with new doctor, encounter for Primary hypertension (CMS/HCC)- Primary Unspecified essential hypertension Generalized anxiety disorder with panic attacks (CMS/HCC) Primary hypertension (CMS/HCC)- Primary Unspecified essential hypertension Generalized anxiety disorder with panic attacks (CMS/HCC) Primary hypertension (CMS/HCC)- Primary Unspecified essential hypertension Generalized anxiety disorder with panic attacks (CMS/HCC) Generalized anxiety disorder with panic attacks (CMS/HCC)- Primary Primary hypertension (CMS/HCC) Unspecified essential hypertension Annual physical exam- Primary Routine general medical examination at a health care facility Primary hypertension (CMS/HCC) Unspecified essential hypertension MDD (major depressive disorder), recurrent episode, mild (HCC) (CMS/HCC) Generalized anxiety disorder with panic attacks (CMS/HCC) documented in this encounter [facility] Summary Purpose Family History No Family History Records Found Advance Directives No Advanced Directives Records Found Additional Source Comments Reason for Visit (unrecogniz ed section and content) Reason Comments Follow-up 2MO F/U Anxiety PT FEELS MEDS MAY NE ED ADJUSTED A LITTLE BIT Reason Comments Follow-up Med Refill Reason Comments Follow-up 3 m Care Teams (unrecognized sec tion and content) New Vehicle Sales Consultant Relationship Specialty Start Date End Date Darius Blue MD [address] [place] [phone] PCP - General Family Medicine 06/20/24 Shaikh Loya MD [address] [place] [phone] PCP - Medical [employer] 03/16/24 11/15/99 Marian Cardoso NP [address] [place] [phone] Nurse Practitioner Family Medicine 06/20/24 [employer] Consultant Relationship Specialty Start Date End Date Darius Blue MD [address] [place] [phone] PCP - General Family Medicine 06/20/24 Shaikh Loya MD [address] [place] [phone] PCP - [facility] 03/16/24 11/15/99 Marian Cardoso, JONES [address] [place] [address] Nurse Practitioner Family Medicine 06/20/24 [employer] Vehicle Sales Consultant Relationship Specialty Start Date End Date Darius Blue MD [address] [place] [phone] PCP - General Family Medicine 06/20/24 Shaikh Loya MD [address] [place] [phone] PCP - Medical [employer] 03/16/24 11/15/99 Marian Cardoso NP [address] [place] [address] Nurse Practitioner Family Medicine 06/20/24 New Vehicle Sales Consultant Relationship Specialty Start Date End Date Darius Blue MD [address] [place] [phone] PCP - General Family Medicine 06/20/24 Shaikh Loya MD [address] [place] [phone] PCP - Medical [employer] 03/16/24 11/15/99 Marian Cardoso NP [address] [place] [address] Nurse Practitioner Family Medicine 06/20/24 [employer] Vehicle Sales Consultant Relationship Specialty Start Date End Date Darius Blue MD [address] [place] [phone] PCP - General Family Medicine 06/20/24 Shaikh Loya MD [address] [place] [phone] PCP - Medical [employer] 03/16/24 11/15/99 Marian Cardoso NP [address] [place] [address] Nurse Practitioner Family Medicine 06/20/24 [employer] Vehicle Sales Consultant Relationship Specialty Start Date End Date Darius Blue MD [address] [place] [phone] PCP - General Family Medicine 06/20/24 Shaikh Loya MD [address] [place] [phone] PCP - Medical [employer] 03/16/24 11/15/99 Marian Cardoso NP [address] [place] [phone] Nurse Practitioner Family Medicine 06/20/24 [employer] Vehicle Sales Consultant Relationship Specialty Start Date End Date Darius Blue MD [address] [place] [phone] PCP - General Family Medicine 06/20/24 Shaikh Loya MD [address] [place] [phone] PCP - [facility] 03/16/24 11/15/99 Marian Cardoso NP [address] [place] [phone] Nurse Practitioner Family Medicine 06/20/24 (unrecognized sect ion and content) No Status Records Found INFORMATION SOURCE (unrecogn ized section and content) DATE CREATED AUTHOR 12/03/[address] [facility] EPIC FOR RECORDS PERTAINING TO PATIENTS WHO [...] BE BASED ON THE PRIMARY CLINICAL RECORDS. [facility] [employer] [facility]. provides no warranty or guarantee of the accuracy or completeness of information in this document.
[2025-01-11 09:41] LABS: Basophils Absolute Auto 0.1 10^3/uL (0.0-0.1); Basophils Percent Auto 0.7 % (0.2-2.0); Eosinophils Absolute Auto 0.2 10^3/uL (0.0-0.7); Eosinophils Percent Auto 2.6 % (0.9-7.0); Hematocrit 37.9 % (42.0-54.0); Hemoglobin 11.8 g/dL (14.0-18.0); Immature Granulocytes Abs Auto 0.02 10^3/uL (0.00-0.03); Immature Granulocytes Pct Auto 0.3 % (0.0-0.5); Lymphocytes Absolute Auto 1.2 10^3/uL (1.2-3.8); Lymphocytes Percent Auto 16.4 % (20.5-60.0); Mean Corpuscular HGB Conc 31.1 g/dL (29.9-35.2); Mean Corpuscular Hemoglobin 20.6 pg (25.9-34.0); Mean Corpuscular Volume 66.3 fL (80.0-94.0); Mean Platelet Volume 10.3 fL (9.5-13.5); Monocytes Absolute Auto 0.8 10^3/uL (0.3-0.8); Monocytes Percent Auto 11.1 % (1.7-12.0); Neutrophils Absolute Auto 5.2 10^3/uL (1.4-6.5); Neutrophils Percent Auto 68.9 % (43.0-75.0); Platelet Count 329 10^3/uL (150-450); Red Blood Count 5.72 10^6/uL (4.70-6.10); Red Cell Distribution Width 16.1 % (11.0-15.0); White Blood Count 7.6 10^3/uL (4.0-11.0)
[2025-01-11 10:58] LABS: Prostate Specific Antigen Scrn 1.69 ng/mL (<=4.00)
[2025-01-11 11:24] LABS: Estimated Average Glucose 103 mg/dL; Glycohemoglobin A1C 5.2 % (4.5-6.2)
[2025-01-11 11:30] LABS: Alanine Aminotransferase 41 U/L (16-63); Albumin Globulin Ratio 1.2; Albumin Level 4.1 g/dL (3.4-5.0); Alkaline Phosphatase 76 U/L (46-116); Anion Gap 11.5; Aspartate Amino Transferase 21 U/L (15-37); BUN Creatinine Ratio 16.3; Bilirubin Direct 0.2 mg/dL (0.0-0.2); Bilirubin Total 0.9 mg/dL (0.2-1.0); Calcium 9.2 mg/dL (8.5-10.1); Carbon Dioxide 28.8 mmol/L (21.0-32.0); Chloride 104 mmol/L (98-107); Chol HDL Ratio 5.2; Cholesterol 210 mg/dL (<=200); Estimated GFR (African America >60 (>=60 mL/min/1.73m^2); Estimated GFR (Non-African Ame >60 (>=60 mL/min/1.73m^2); Globulin 3.4 g/dL; Glucose 109 mg/dL (74-106); HDL Cholesterol 40 mg/dL (40-60); Potassium 4.3 mmol/L (3.5-5.1); Sodium 140 mmol/L (136-145); Thyroid Stimulating Hormone 1.683 uIU/mL (0.358-3.740); Total Protein 7.5 g/dL (6.4-8.2); Triglycerides 97 mg/dL (<=150); VLDL CHOLESTEROL 19.4 mg/dL
[2025-01-12 04:07] LABS: Testosterone 304 ng/dL (264-916)
== END 2025-01-11 09:02 | disposition home or self-care (01) ==
LOC: LAB 09:03
PROVIDERS: Family Provider Family Medicine; PCP Family Medicine; Visit Provider Family Medicine
DX: Z00.00 Encounter for general adult medical examination without abnormal findings (principal)
CPT/HCPCS: 36415; 80048; 80061; 80076; 83036; 84403; 84443; 85025; G0103